=== PATIENT | female | born 1965 | race Caucasian/White ===

== ENCOUNTER 2017-09-20 16:21 | Inpatient (IN) | payer OTHER ==
[2017-09-20] MEDS: morphine 4 MG/ML VIAL IV (18:54)
[2017-09-20] MEDS: ONDANSETRON 4 MG INJ IV ×2 (18:54→23:07)
[2017-09-20] MEDS: ACETAMINOPHEN 500 MG TAB PO (18:54)
[2017-09-20] MEDS: SODIUM CHLORIDE 0.9% 1L BAG IV* (18:55)
[2017-09-20 19:03] LABS: ADD MAN DIFF? NO
[2017-09-20 19:06] LABS: WHITE BLOOD COUNT 14.4 10^3/ul (4.8-10.8)
[2017-09-20 19:06] LABS: ABNORMAL IP MESSAGE 1; BASOPHILS % 0.3 % (0.0-2.0); HEMATOCRIT 36.8 % (37.0-47.0); HEMOGLOBIN 12.5 g/dl (12.0-16.0); LYMPHOCYTES # 0.6 10^3/ul (0.8-2.9); MEAN CORPUSCULAR HEMOGLOBIN 29.1 pg (29.0-33.0); MEAN CORPUSCULAR VOLUME 85.8 fl (82.0-101.0); MEAN PLATELET VOLUME 8.7 fl (7.4-10.4); MONOCYTE # 0.4 10^3/ul (0.3-0.9); MONOCYTES % 2.4 % (0.0-11.0); NEUTROPHIL # 13.3 10^3/ul (1.6-7.5); NEUTROPHILS % 92.6 % (39.0-77.0); PLATELET COUNT 271 10^3/UL (140-415); RED BLOOD COUNT 4.29 10^6/ul (4.20-5.40); RED CELL DISTRIBUTION WIDTH 13.2 % (11.5-14.5)
[2017-09-20 19:08] LABS: POSITIVE DIFF @See below
[2017-09-20 19:27] LABS: ALANINE AMINOTRANSFERASE 37 IU/L (13-69); ALBUMIN 4.8 g/dl (3.3-4.9); ALBUMIN/GLOBULIN RATIO 1.37; ALKALINE PHOSPHATASE 95 IU/L (42-121); ANION GAP 22 (8-16); ASPARTATE AMINO TRANSFERASE 32 IU/L (15-46); BILIRUBIN,INDIRECT 0.6 mg/dl (0-1.1); BILIRUBIN,TOTAL 0.6 mg/dl (0.2-1.3); BLOOD UREA NITROGEN 18 mg/dl (7-20); CALCIUM 9.9 mg/dl (8.4-10.2); CARBON DIOXIDE 25 mmol/L (21-31); CHLORIDE 102 mmol/L (97-110); CREATININE 0.94 mg/dl (0.44-1.00); GLUCOSE 135 mg/dl (70-220); LIPASE 296 U/L (23-300); SODIUM 145 mmol/L (135-144); TOTAL PROTEIN 8.3 g/dl (6.1-8.1)
[2017-09-20 19:35] LABS: LACTIC ACID 2.5 mmol/L (0.5-2.0)
[2017-09-20 20:09] LABS: ADD UMIC YES; UR ASCORBIC ACID NEGATIVE (NEGATIVE); UR BACTERIA FEW /HPF (NONE SEEN); UR BILIRUBIN (Dip) NEGATIVE (NEGATIVE); UR BLOOD (Dip) 1+ mg/dL (NEGATIVE); UR CLARITY SLIGHTLY CLOUDY (CLEAR); UR COLOR YELLOW (YELLOW); UR GLUCOSE (Dip) NEGATIVE (NEGATIVE); UR KETONES (Dip) TRACE mg/dL (NEGATIVE); UR LEUKOCYTE ESTERASE (Dip) 1+ Leu/ul (NEGATIVE); UR MUCUS FEW /HPF (NONE SEEN); UR NITRITE (Dip) NEGATIVE (NEGATIVE); UR RBC 10 /HPF (0-5); UR SPECIFIC GRAVITY (Dip) 1.017 (1.003-1.030); UR TOTAL PROTEIN (Dip) NEGATIVE (NEGATIVE); UR UROBILINOGEN (Dip) NEGATIVE (NEGATIVE); UR WBC 94 /HPF (0-5)
[2017-09-20] MEDS: CEFTRIAXONE 1 GM/50 ML (PMX) 50 ML IVPB (20:45)
[2017-09-20] MEDS: VANCOMYCIN 1 GM (PMX) 250 ML IVPB (21:20)
[2017-09-20 21:42] LABS: LACTIC ACID 1.6 mmol/L (0.5-2.0)
[2017-09-20] MEDS ORDERED: ONDANSETRON 4 MG INJ IV (22:30)
[2017-09-20] MEDS ORDERED: ACETAMINOPHEN 325 MG TAB PO (22:30)
[2017-09-20] MEDS: HYDROmorphONE 0.5 MG/0.5 ML SYG IV (23:07)
[2017-09-21 00:11] LABS: LACTIC ACID 1.8 mmol/L (0.5-2.0)
[2017-09-21] MEDS: SOD CHLORIDE 0.9% 1,000 ML IV ×6 (00:27→23:01)
[2017-09-21] MEDS: ACETAMINOPHEN 325 MG TAB PO ×2 (00:36→06:33)
[2017-09-21] MEDS: HYDROmorphONE 0.5 MG/0.5 ML SYG IV (01:13)
[2017-09-21] MEDS: PIPER-TAZO 3.375 GM IV (PMX) 100 ML IVPB ×6 (01:15→23:01)
[2017-09-21] MEDS: morphine 2 MG INJ IV ×2 (03:22→11:52)
[2017-09-21 06:19] LABS: ABNORMAL IP MESSAGE 1; HEMATOCRIT 30.1 % (37.0-47.0); HEMOGLOBIN 10.1 g/dl (12.0-16.0); MEAN CORPUSCULAR HEMOGLOBIN 29.6 pg (29.0-33.0); MEAN CORPUSCULAR HGB CONC 33.6 g/dl (32.0-37.0); MEAN CORPUSCULAR VOLUME 88.3 fl (82.0-101.0); MEAN PLATELET VOLUME 9.1 fl (7.4-10.4); PLATELET COUNT 210 10^3/UL (140-415); RED BLOOD COUNT 3.41 10^6/ul (4.20-5.40); RED CELL DISTRIBUTION WIDTH 13.8 % (11.5-14.5)
[2017-09-21 06:19] LABS: WHITE BLOOD COUNT 12.4 10^3/ul (4.8-10.8)
[2017-09-21 06:23] LABS: ADD MAN DIFF? YES; POSITIVE DIFF @See below
[2017-09-21 06:38] LABS: ALANINE AMINOTRANSFERASE 33 IU/L (13-69); ALBUMIN 3.4 g/dl (3.3-4.9); ALBUMIN/GLOBULIN RATIO 1.21; ALKALINE PHOSPHATASE 65 IU/L (42-121); ANION GAP 15 (8-16); ASPARTATE AMINO TRANSFERASE 33 IU/L (15-46); BILIRUBIN,INDIRECT 0.8 mg/dl (0-1.1); BILIRUBIN,TOTAL 0.8 mg/dl (0.2-1.3); BLOOD UREA NITROGEN 16 mg/dl (7-20); CALCIUM 8.1 mg/dl (8.4-10.2); CARBON DIOXIDE 23 mmol/L (21-31); CHLORIDE 110 mmol/L (97-110); CREATININE 1.14 mg/dl (0.44-1.00); GLUCOSE 152 mg/dl (70-220); POTASSIUM 3.9 mmol/L (3.5-5.1); SODIUM 144 mmol/L (135-144); TOTAL PROTEIN 6.2 g/dl (6.1-8.1)
[2017-09-21 08:59] LABS: ANISOCYTOSIS 2+ (0-0); BAND NEUTROPHILS #M 3.3 10^3/ul (0.0-0.6); BAND NEUTROPHILS % (M) 27 % (0-4); HYPOCHROMASIA 1+ (0-0); LYMPHOCYTES #M 0.2 10^3/ul (0.8-2.9); LYMPHOCYTES % (M) 2 % (15-51); MICROCYTOSIS 2+ (0-0); MONOCYTE #M 0.1 10^3/ul (0.3-0.9); MONOCYTES % (M) 1 % (0-11); PLATELET ESTIMATE NORMAL; POLYCHROMASIA 1+ (0-0); SEG NEUT #M 9.1 10^3/ul (1.6-7.5); SEGMENTED NEUTROPHILS (M) % 70 % (39-77); SMUDGE%M 2 % (0-0)
[2017-09-21] MEDS: ACETAMINOPHEN 1000MG/100ML IV 100 ML IVPB ×3 (13:15→21:23)
[2017-09-21] MEDS ORDERED: IOHEXOL 300MG/ML 30 ML BTL (17:30)
[2017-09-21] MEDS ORDERED: FENTAnyl 50 MCG/ML VIAL ×2 (18:02→18:13)
[2017-09-21] MEDS ORDERED: MIDAZOLAM 1 MG/ML 2 ML INJ (18:02)
[2017-09-21] MEDS ORDERED: MEPERIDINE 100 MG INJ (18:39)
[2017-09-21] MEDS ORDERED: ONDANSETRON 4 MG INJ (18:40)
[2017-09-21] MEDS ORDERED: LIDOCAINE 100 MG SYRINGE (18:40)
[2017-09-21] MEDS ORDERED: PROPOFOL 20 ML (18:40)
[2017-09-21] MEDS: SODIUM CHLORIDE 0.9% 1L IRRIG IRR (18:59)
[2017-09-21] MEDS ORDERED: MEPERIDINE 25 MG INJ IV (19:00)
[2017-09-21] MEDS ORDERED: FENTAnyl 50 MCG/ML VIAL IV (19:00)
[2017-09-21] MEDS ORDERED: ONDANSETRON 4 MG INJ IV (19:00)
[2017-09-21] MEDS ORDERED: DIPHENHYDRAMINE 50 MG INJ IV (19:00)
[2017-09-21] MEDS ORDERED: HYDROmorphONE (0.2 MG/ML) 10ML SYG IV ×2 (19:00)
[2017-09-21 20:19] LABS: AADO2 Arterial 632.1 mmHg (7.0-24.0); Allen Test ACCEPTAB; Arterial Base Excess -6.6 mmol/L (-3.0-3); Arterial Blood Gas Oxygen Sat 86.3 mmHG (95.0-98.0); Arterial COHb 0.3 % (0.0-3.0); Arterial Fraction of Oxyhgb 85.9 % (93.0-99.0); Arterial HCO3 17.5 mmol/L (22.0-26.0); Arterial MetHb 0.2 % (0.0-1.5); Arterial Total Hemglobin 11.6 g/dl (12.0-18.0); Arterial pCO2 30.5 mmhg (35-45); MODE NON-REBREATHING MASK; Site Right Radial
[2017-09-21] MEDS ORDERED: TAMSULOSIN (SR) 0.4 MG CAP PO (21:00)
[2017-09-22] MEDS: PIPER-TAZO 3.375 GM IV (PMX) 100 ML IVPB ×4 (05:05→23:47)
[2017-09-22] MEDS: ACETAMINOPHEN 325 MG TAB PO ×3 (05:05→19:19)
[2017-09-22 05:26] LABS: WHITE BLOOD COUNT 10.8 10^3/ul (4.8-10.8)
[2017-09-22 05:26] LABS: HEMATOCRIT 28.6 % (37.0-47.0); HEMOGLOBIN 9.5 g/dl (12.0-16.0); MEAN CORPUSCULAR HEMOGLOBIN 29.6 pg (29.0-33.0); MEAN CORPUSCULAR HGB CONC 33.2 g/dl (32.0-37.0); MEAN CORPUSCULAR VOLUME 89.1 fl (82.0-101.0); MEAN PLATELET VOLUME 9.2 fl (7.4-10.4); PLATELET COUNT 159 10^3/UL (140-415); RED BLOOD COUNT 3.21 10^6/ul (4.20-5.40); RED CELL DISTRIBUTION WIDTH 14.3 % (11.5-14.5)
[2017-09-22 05:28] LABS: IRON 20 ug/dl (35-150)
[2017-09-22 05:38] LABS: % IRON SATURATION 7 % SAT (22-52); TOTAL IRON BINDING CAPACITY 268 ug/dl (241-421)
[2017-09-22 05:55] LABS: ANION GAP 17 (8-16); BLOOD UREA NITROGEN 14 mg/dl (7-20); CALCIUM 8.3 mg/dl (8.4-10.2); CARBON DIOXIDE 22 mmol/L (21-31); CHLORIDE 109 mmol/L (97-110); GLUCOSE 96 mg/dl (70-220); MAGNESIUM 1.8 mg/dl (1.7-2.5); PHOSPHORUS 3.7 mg/dl (2.5-4.9); POTASSIUM 3.8 mmol/L (3.5-5.1); SODIUM 144 mmol/L (135-144)
[2017-09-22 06:06] LABS: POSITIVE DIFF @See below
[2017-09-22 06:07] LABS: ADD MAN DIFF? YES
[2017-09-22 06:24] LABS: FERRITIN 60.1 ng/ml (6.2-137.0)
[2017-09-22] MEDS: SOD CHLORIDE 0.9% 1,000 ML IV (08:13)
[2017-09-22 08:59] LABS: ANISOCYTOSIS 1+ (0-0); BASOPHIL #M 0.1 10^3/ul (0.0-0.0); BASOPHILS % (M) 1 % (0-2); MICROCYTOSIS 1+ (0-0); PLATELET ESTIMATE NORMAL; POLYCHROMASIA 2+ (0-0); SMUDGE%M 5 % (0-0)
[2017-09-22] MEDS ORDERED: VANCOMYCIN IV PER PHARMACY XX (10:00)
[2017-09-22] MEDS ORDERED: ALBUTEROL/IPRATROPIUM (NEB) 3 ML AMP HHN (10:00)
[2017-09-22 11:27] LABS: B-TYPE NATRIURETIC PEPTIDE 1150 PG/ML (0-125)
[2017-09-22] MEDS: VANCOMYCIN 1.5 GM in SOD CHLORIDE 0.9% 250 ML IVPB (12:00)
[2017-09-22 12:41] LABS: BAND NEUTROPHILS #M 1.5 10^3/ul (0.0-0.6); BAND NEUTROPHILS % (M) 14 % (0-4); EOSINOPHILS % (M) 1 % (0-7); LYMPHOCYTES #M 0.4 10^3/ul (0.8-2.9); LYMPHOCYTES % (M) 4 % (15-51); MONOCYTE #M 0.3 10^3/ul (0.3-0.9); MONOCYTES % (M) 3 % (0-11); POIKILOCYTOSIS 2+ (0-0); REACTIVE LYMPHOCYTES #M 0.1 10^3/ul (0.0-0.0); REACTIVE LYMPHOCYTES% (M) 1 % (0-0); SEG NEUT #M 8.6 10^3/ul (1.6-7.5); SEGMENTED NEUTROPHILS (M) % 78 % (39-77)
[2017-09-22] MEDS ORDERED: FUROSEMIDE 20 MG INJ IV ×2 (13:30→18:00)
[2017-09-22 14:26] LABS: TROPONIN-I 0.036 ng/ml (0.00-0.12)
[2017-09-22] MEDS: ALBUTEROL/IPRATROPIUM (NEB) 3 ML AMP HHN ×2 (14:49→20:11)
[2017-09-22] MEDS: HEPARIN 5,000 UNIT/0.5 ML VIAL SC ×2 (14:51→22:16)
[2017-09-23] MEDS ORDERED: VANCOMYCIN 1.25 GM in SOD CHLORIDE 0.9% 250 ML IVPB
[2017-09-23] MEDS: ACETAMINOPHEN 325 MG TAB PO ×2 (02:22→11:56)
[2017-09-23 05:10] LABS: ADD MAN DIFF? NO
[2017-09-23 05:16] LABS: BASOPHILS % 0.3 % (0.0-2.0); EOSINOPHILS # 0.1 10^3/ul (0.0-0.5); EOSINOPHILS % 0.6 % (0.0-7.0); HEMATOCRIT 26.6 % (37.0-47.0); HEMOGLOBIN 9.2 g/dl (12.0-16.0); LYMPHOCYTES # 1.1 10^3/ul (0.8-2.9); LYMPHOCYTES % 10.8 % (15.0-51.0); MEAN CORPUSCULAR HEMOGLOBIN 29.6 pg (29.0-33.0); MEAN CORPUSCULAR HGB CONC 34.6 g/dl (32.0-37.0); MEAN CORPUSCULAR VOLUME 85.5 fl (82.0-101.0); MEAN PLATELET VOLUME 9.2 fl (7.4-10.4); MONOCYTE # 0.7 10^3/ul (0.3-0.9); MONOCYTES % 6.9 % (0.0-11.0); NEUTROPHIL # 8.1 10^3/ul (1.6-7.5); NEUTROPHILS % 80.8 % (39.0-77.0); PLATELET COUNT 175 10^3/UL (140-415); RED BLOOD COUNT 3.11 10^6/ul (4.20-5.40); RED CELL DISTRIBUTION WIDTH 13.8 % (11.5-14.5)
[2017-09-23 05:39] LABS: LACTIC ACID 0.8 mmol/L (0.5-2.0)
[2017-09-23] MEDS: PIPER-TAZO 3.375 GM IV (PMX) 100 ML IVPB (05:50)
[2017-09-23 05:53] LABS: ANION GAP 16 (8-16); BLOOD UREA NITROGEN 10 mg/dl (7-20); CALCIUM 8.4 mg/dl (8.4-10.2); CARBON DIOXIDE 25 mmol/L (21-31); CHLORIDE 108 mmol/L (97-110); CREATININE 0.75 mg/dl (0.44-1.00); GLUCOSE 99 mg/dl (70-220); POTASSIUM 3.5 mmol/L (3.5-5.1); SODIUM 145 mmol/L (135-144)
[2017-09-23] MEDS: HEPARIN 5,000 UNIT/0.5 ML VIAL SC (05:55)
[2017-09-23 05:56] LABS: TROPONIN-I 0.016 ng/ml (0.00-0.12)
[2017-09-23] MEDS: ALBUTEROL/IPRATROPIUM (NEB) 3 ML AMP HHN ×3 (12:07→20:25)
[2017-09-23] MEDS: LEVOFLOXACIN 750MG/D5W (PMX) 150 ML IVPB (13:32)
[2017-09-23] MEDS: IBUPROFEN 400 MG TAB NGT (14:48)
[2017-09-24 06:05] LABS: ADD MAN DIFF? NO
[2017-09-24 06:21] LABS: WHITE BLOOD COUNT 7.4 10^3/ul (4.8-10.8)
[2017-09-24 06:21] LABS: BASOPHILS % 0.4 % (0.0-2.0); EOSINOPHILS # 0.1 10^3/ul (0.0-0.5); EOSINOPHILS % 1.1 % (0.0-7.0); HEMATOCRIT 26.7 % (37.0-47.0); HEMOGLOBIN 9.4 g/dl (12.0-16.0); LYMPHOCYTES # 1.1 10^3/ul (0.8-2.9); LYMPHOCYTES % 14.3 % (15.0-51.0); MEAN CORPUSCULAR HEMOGLOBIN 29.2 pg (29.0-33.0); MEAN CORPUSCULAR HGB CONC 35.2 g/dl (32.0-37.0); MEAN CORPUSCULAR VOLUME 82.9 fl (82.0-101.0); MEAN PLATELET VOLUME 9.2 fl (7.4-10.4); MONOCYTE # 0.6 10^3/ul (0.3-0.9); MONOCYTES % 8.6 % (0.0-11.0); NEUTROPHIL # 5.5 10^3/ul (1.6-7.5); NEUTROPHILS % 74.9 % (39.0-77.0); PLATELET COUNT 227 10^3/UL (140-415); RED BLOOD COUNT 3.22 10^6/ul (4.20-5.40); RED CELL DISTRIBUTION WIDTH 13.6 % (11.5-14.5)
[2017-09-24 06:48] LABS: ANION GAP 14 (8-16); BLOOD UREA NITROGEN 10 mg/dl (7-20); CALCIUM 8.7 mg/dl (8.4-10.2); CARBON DIOXIDE 26 mmol/L (21-31); CHLORIDE 108 mmol/L (97-110); CREATININE 0.65 mg/dl (0.44-1.00); GLUCOSE 115 mg/dl (70-220); MAGNESIUM 1.9 mg/dl (1.7-2.5); PHOSPHORUS 1.3 mg/dl (2.5-4.9); POTASSIUM 3.4 mmol/L (3.5-5.1); SODIUM 145 mmol/L (135-144)
[2017-09-24] MEDS: ALBUTEROL/IPRATROPIUM (NEB) 3 ML AMP HHN ×2 (08:46→13:56)
[2017-09-24] MEDS: ENOXAPARIN 40 MG/0.4 ML SYG SC (09:06)
[2017-09-24] MEDS: POTASSIUM PHOSPHATE 20 MEQ in SOD CHLORIDE 0.9% 250 ML IVPB (11:34)
[2017-09-24] MEDS: LEVOFLOXACIN 750MG/D5W (PMX) 150 ML IVPB (13:28)
[2017-09-24] MEDS: ACETAMINOPHEN 325 MG TAB PO (14:56)
== END 2017-09-24 19:30 | disposition short-term general hospital (02) | DRG 871 ==
LOC: PP2 22:28 → FTE 16:21 → TEL 09-21 14:05 → ICU 09-21 21:02
PROC: 0T768DZ Dilation of Right Ureter with Intraluminal Device, Via Natural or Artificial Opening Endoscopic (ICD-10-PCS; principal; 2017-09-21 17:30)
PROC: 4A033R1 Measurement of Arterial Saturation, Peripheral, Percutaneous Approach (ICD-10-PCS; 2017-09-21 17:59)
DX: A41.50 Gram-negative sepsis, unspecified (principal); J96.01 Acute respiratory failure with hypoxia; J18.9 Pneumonia, unspecified organism; N13.6 Pyonephrosis; D64.9 Anemia, unspecified; R65.20 Severe sepsis without septic shock
CPT/HCPCS: 36415; 36600; 71045; 74018; 74176; 74430; 80048; 80053; 81001; 82728; 82803; 83540; 83605; 83690; 83735; 83880; 84100; 84443; 84484; 85025; 87040; 87081; 87086; 87400; 93306; 94640; 96365; 96366; 96367; 96375; 96376; 99285-25

== ENCOUNTER 2017-11-09 19:10 | Inpatient (IN) | payer OTHER ==
[2017-11-09 20:13] LABS: ADD MAN DIFF? NO
[2017-11-09 20:16] LABS: BASOPHIL # 0.1 10^3/ul (0.0-0.1); BASOPHILS % 0.5 % (0.0-2.0); EOSINOPHILS # 0.2 10^3/ul (0.0-0.5); EOSINOPHILS % 1.9 % (0.0-7.0); HEMATOCRIT 31.5 % (37.0-47.0); HEMOGLOBIN 10.5 g/dl (12.0-16.0); LYMPHOCYTES # 1.9 10^3/ul (0.8-2.9); LYMPHOCYTES % 18.5 % (15.0-51.0); MEAN CORPUSCULAR HEMOGLOBIN 29.4 pg (29.0-33.0); MEAN CORPUSCULAR HGB CONC 33.3 g/dl (32.0-37.0); MEAN CORPUSCULAR VOLUME 88.2 fl (82.0-101.0); MEAN PLATELET VOLUME 8.9 fl (7.4-10.4); MONOCYTE # 0.6 10^3/ul (0.3-0.9); MONOCYTES % 6.3 % (0.0-11.0); NEUTROPHIL # 7.3 10^3/ul (1.6-7.5); NEUTROPHILS % 72.6 % (39.0-77.0); PLATELET COUNT 327 10^3/UL (140-415); RED BLOOD COUNT 3.57 10^6/ul (4.20-5.40); RED CELL DISTRIBUTION WIDTH 13.1 % (11.5-14.5)
[2017-11-09 20:16] LABS: WHITE BLOOD COUNT 10.1 10^3/ul (4.8-10.8)
[2017-11-09 20:22] LABS: ADD UMIC YES; UR ASCORBIC ACID NEGATIVE (NEGATIVE); UR BILIRUBIN (Dip) NEGATIVE (NEGATIVE); UR BLOOD (Dip) 3+ mg/dL (NEGATIVE); UR CLARITY SLIGHTLY CLOUDY (CLEAR); UR COLOR STRAW (YELLOW); UR GLUCOSE (Dip) NEGATIVE (NEGATIVE); UR KETONES (Dip) NEGATIVE (NEGATIVE); UR LEUKOCYTE ESTERASE (Dip) TRACE Leu/ul (NEGATIVE); UR MUCUS FEW /HPF (NONE SEEN); UR NITRITE (Dip) NEGATIVE (NEGATIVE); UR RBC 47 /HPF (0-5); UR SPECIFIC GRAVITY (Dip) 1.013 (1.003-1.030); UR TOTAL PROTEIN (Dip) 1+ mg/dl (NEGATIVE); UR UROBILINOGEN (Dip) NEGATIVE (NEGATIVE); UR WBC 8 /HPF (0-5)
[2017-11-09] MEDS: CEFEPIME 2GM/50 ML (PMX) 50 ML IVPB (20:22)
[2017-11-09] MEDS: SODIUM CHLORIDE 0.9% 1L BAG IV* (20:23)
[2017-11-09] MEDS: morphine 4 MG/ML VIAL IV (20:23)
[2017-11-09] MEDS: ONDANSETRON 4 MG INJ IV (20:23)
[2017-11-09 20:31] LABS: INR 0.94; PARTIAL THROMBOPLASTIN TIME 28.9 Sec (25.0-35.0); PROTIME 12.7 Sec (11.9-14.9)
[2017-11-09 20:32] LABS: LACTIC ACID 1.2 mmol/L (0.5-2.0)
[2017-11-09 20:33] LABS: ALANINE AMINOTRANSFERASE 29 IU/L (13-69); ALBUMIN 4.1 g/dl (3.3-4.9); ALBUMIN/GLOBULIN RATIO 1.13; ALKALINE PHOSPHATASE 97 IU/L (42-121); ANION GAP 16 (8-16); ASPARTATE AMINO TRANSFERASE 19 IU/L (15-46); BILIRUBIN,INDIRECT 0.3 mg/dl (0-1.1); BILIRUBIN,TOTAL 0.3 mg/dl (0.2-1.3); BLOOD UREA NITROGEN 20 mg/dl (7-20); CALCIUM 9.5 mg/dl (8.4-10.2); CARBON DIOXIDE 25 mmol/L (21-31); CHLORIDE 103 mmol/L (97-110); CREATININE 0.72 mg/dl (0.44-1.00); GLUCOSE 110 mg/dl (70-220); POTASSIUM 3.1 mmol/L (3.5-5.1); SODIUM 141 mmol/L (135-144); TOTAL PROTEIN 7.7 g/dl (6.1-8.1)
[2017-11-09 20:54] LABS: TROPONIN-I < 0.012 ng/ml (0.00-0.12)
[2017-11-09 22:11] LABS: LACTIC ACID 0.9 mmol/L (0.5-2.0)
[2017-11-09] MEDS: POTASSIUM CHLORIDE (SR) 20 MEQ TAB PO (22:54)
[2017-11-10 00:18] LABS: LACTIC ACID 1.7 mmol/L (0.5-2.0)
[2017-11-10] MEDS ORDERED: PIPER-TAZO 3.375 GM IV (PMX) 100 ML IVPB (02:00)
[2017-11-10] MEDS ORDERED: NACL 0.9% 3 ML SYG IV (03:00)
[2017-11-10] MEDS: CEFEPIME 1GM/50 ML (PMX) 50 ML IVPB ×2 (09:25→21:25)
[2017-11-10] MEDS: ACETAMINOPHEN 325 MG TAB PO (22:32)
[2017-11-11 06:15] LABS: ADD MAN DIFF? NO
[2017-11-11 06:18] LABS: BASOPHIL # 0.1 10^3/ul (0.0-0.1); BASOPHILS % 0.8 % (0.0-2.0); EOSINOPHILS # 0.3 10^3/ul (0.0-0.5); EOSINOPHILS % 4.6 % (0.0-7.0); HEMATOCRIT 35.3 % (37.0-47.0); HEMOGLOBIN 11.5 g/dl (12.0-16.0); LYMPHOCYTES % 33.2 % (15.0-51.0); MEAN CORPUSCULAR HEMOGLOBIN 29.1 pg (29.0-33.0); MEAN CORPUSCULAR HGB CONC 32.6 g/dl (32.0-37.0); MEAN CORPUSCULAR VOLUME 89.4 fl (82.0-101.0); MEAN PLATELET VOLUME 8.7 fl (7.4-10.4); MONOCYTE # 0.5 10^3/ul (0.3-0.9); MONOCYTES % 8.4 % (0.0-11.0); NEUTROPHIL # 3.2 10^3/ul (1.6-7.5); NEUTROPHILS % 52.7 % (39.0-77.0); PLATELET COUNT 296 10^3/UL (140-415); RED BLOOD COUNT 3.95 10^6/ul (4.20-5.40); RED CELL DISTRIBUTION WIDTH 13.1 % (11.5-14.5)
[2017-11-11 06:18] LABS: WHITE BLOOD COUNT 6.1 10^3/ul (4.8-10.8)
[2017-11-11 06:45] LABS: ALANINE AMINOTRANSFERASE 32 IU/L (13-69); ALBUMIN 3.8 g/dl (3.3-4.9); ALBUMIN/GLOBULIN RATIO 1.08; ALKALINE PHOSPHATASE 90 IU/L (42-121); ANION GAP 12 (8-16); ASPARTATE AMINO TRANSFERASE 24 IU/L (15-46); BILIRUBIN,INDIRECT 0.6 mg/dl (0-1.1); BILIRUBIN,TOTAL 0.6 mg/dl (0.2-1.3); BLOOD UREA NITROGEN 16 mg/dl (7-20); CALCIUM 9.8 mg/dl (8.4-10.2); CARBON DIOXIDE 31 mmol/L (21-31); CHLORIDE 107 mmol/L (97-110); CREATININE 0.65 mg/dl (0.44-1.00); GLUCOSE 97 mg/dl (70-220); POTASSIUM 3.9 mmol/L (3.5-5.1); SODIUM 146 mmol/L (135-144); TOTAL PROTEIN 7.3 g/dl (6.1-8.1)
[2017-11-11 06:46] LABS: PHOSPHORUS 4.5 mg/dl (2.5-4.9)
[2017-11-11 06:46] LABS: CHOL/HDL RATIO 4.1 RATIO; CHOLESTEROL 196 mg/dl (100-200); HDL CHOLESTEROL 47 mg/dl (37-92); LDL CHOLESTEROL,CALCULATED 129 mg/dl; TRIGLYCERIDES 98 mg/dl (0-149)
[2017-11-11 06:51] LABS: FREE T4 (FREE THYROXINE) 1.26 ng/dl (0.64-1.79)
[2017-11-11 07:05] LABS: THYROID STIMULATING HORMONE 0.908 MIU/L (0.465-4.680)
[2017-11-11 07:37] LABS: HEMOGLOBIN A1C 5.2 % (0-5.9)
[2017-11-11] MEDS: CEFEPIME 1GM/50 ML (PMX) 50 ML IVPB ×2 (09:17→20:47)
[2017-11-11] MEDS: ACETAMINOPHEN 325 MG TAB PO (14:29)
[2017-11-12] MEDS ORDERED: CEFAZOLIN 1 GM INJ (07:00)
[2017-11-12 07:41] LABS: ADD MAN DIFF? NO
[2017-11-12 07:49] LABS: WHITE BLOOD COUNT 6.8 10^3/ul (4.8-10.8)
[2017-11-12 07:49] LABS: BASOPHIL # 0.1 10^3/ul (0.0-0.1); BASOPHILS % 0.9 % (0.0-2.0); EOSINOPHILS # 0.2 10^3/ul (0.0-0.5); EOSINOPHILS % 3.2 % (0.0-7.0); HEMATOCRIT 35.2 % (37.0-47.0); HEMOGLOBIN 11.7 g/dl (12.0-16.0); LYMPHOCYTES # 1.9 10^3/ul (0.8-2.9); MEAN CORPUSCULAR HEMOGLOBIN 29.6 pg (29.0-33.0); MEAN CORPUSCULAR HGB CONC 33.2 g/dl (32.0-37.0); MEAN CORPUSCULAR VOLUME 89.1 fl (82.0-101.0); MEAN PLATELET VOLUME 8.8 fl (7.4-10.4); MONOCYTE # 0.5 10^3/ul (0.3-0.9); MONOCYTES % 7.8 % (0.0-11.0); NEUTROPHIL # 4.1 10^3/ul (1.6-7.5); PLATELET COUNT 322 10^3/UL (140-415); RED BLOOD COUNT 3.95 10^6/ul (4.20-5.40); RED CELL DISTRIBUTION WIDTH 12.8 % (11.5-14.5)
[2017-11-12 08:15] LABS: PHOSPHORUS 4.4 mg/dl (2.5-4.9)
[2017-11-12 08:28] LABS: ANION GAP 15 (8-16); BLOOD UREA NITROGEN 20 mg/dl (7-20); CALCIUM 9.9 mg/dl (8.4-10.2); CARBON DIOXIDE 30 mmol/L (21-31); CHLORIDE 105 mmol/L (97-110); GLUCOSE 104 mg/dl (70-220); SODIUM 146 mmol/L (135-144)
[2017-11-12] MEDS: CEFEPIME 1GM/50 ML (PMX) 50 ML IVPB ×2 (09:02→21:00)
[2017-11-12] MEDS ORDERED: MIDAZOLAM 1 MG/ML 2 ML INJ (21:31)
[2017-11-12] MEDS ORDERED: FENTAnyl 50 MCG/ML VIAL ×2 (21:31→21:51)
[2017-11-12] MEDS ORDERED: PROPOFOL 20 ML (21:31)
[2017-11-12] MEDS ORDERED: METOCLOPRAMIDE 10 MG INJ (21:33)
[2017-11-12] MEDS ORDERED: ONDANSETRON 4 MG INJ (21:33)
[2017-11-12] MEDS ORDERED: HYDROmorphONE (0.2 MG/ML) 10ML SYG IV ×2 (22:00)
[2017-11-12] MEDS ORDERED: hydrALAzine 20 MG INJ IV (22:00)
[2017-11-12] MEDS ORDERED: LABETALOL HCL 20MG INJ IV (22:00)
[2017-11-12] MEDS ORDERED: DIPHENHYDRAMINE 50 MG INJ IV (22:00)
[2017-11-12] MEDS: ONDANSETRON 4 MG INJ IV (23:23)
[2017-11-12] MEDS: MEPERIDINE 25 MG INJ IV (23:36)
[2017-11-13] MEDS: HYDROCODONE/APAP (5/325) TAB PO ×4 (01:03→23:05)
[2017-11-13] MEDS: morphine 4 MG/ML VIAL IV ×2 (05:55→06:05)
[2017-11-13] MEDS: CEFEPIME 1GM/50 ML (PMX) 50 ML IVPB ×2 (09:09→20:26)
[2017-11-13 09:53] LABS: TROPONIN-I < 0.012 ng/ml (0.00-0.12)
[2017-11-13 10:09] LABS: D-DIMER 583.39 ng/ml (<460)
[2017-11-13] MEDS ORDERED: OXYCODONE/ACETAMINOPHEN (5/325) TAB PO (13:30)
[2017-11-13] MEDS: OXYCODONE/ACETAMINOPHEN (5/325) TAB PO (13:37)
[2017-11-13] MEDS: POLYETHYLENE GLYCOL 17 GM PACKET PO (17:20)
[2017-11-13] MEDS ORDERED: morphine 2 MG INJ (23:14)
[2017-11-13] MEDS: morphine 2 MG INJ IV (23:19)
[2017-11-13] MEDS: ONDANSETRON 4 MG INJ IV (23:20)
[2017-11-14] MEDS: CEFEPIME 1GM/50 ML (PMX) 50 ML IVPB (08:31)
[2017-11-14] MEDS: ACETAMINOPHEN 325 MG TAB PO (12:01)
[2017-11-14] MEDS: morphine 2 MG INJ IV (15:45)
== END 2017-11-14 18:33 | disposition home or self-care (01) | DRG 854 ==
LOC: E/R 19:10 → MS4 22:24
PROC: 0TC68ZZ Extirpation of Matter from Right Ureter, Via Natural or Artificial Opening Endoscopic (ICD-10-PCS; principal; 2017-11-12 19:00)
PROC: 0T768DZ Dilation of Right Ureter with Intraluminal Device, Via Natural or Artificial Opening Endoscopic (ICD-10-PCS; 2017-11-12 19:00)
PROC: 0TP98DZ Removal of Intraluminal Device from Ureter, Via Natural or Artificial Opening Endoscopic (ICD-10-PCS; 2017-11-12 19:00)
DX: A41.9 Sepsis, unspecified organism (principal); N13.6 Pyonephrosis; E87.6 Hypokalemia; D64.9 Anemia, unspecified
CPT/HCPCS: 36415; 71045; 74018; 74176; 74430; 76775; 80048; 80053; 80061; 81001; 83036; 83605; 83735; 84100; 84439; 84443; 84484; 84703; 85025; 85378; 85610; 85730; 87040; 87086; 88300; 93005; 96374; 96375; 99291-25

== ENCOUNTER 2018-12-28 19:12 | Emergency (ER) | payer OTHER | END 2018-12-28 22:58 | disposition home or self-care (01) | LOC: FTE 19:12 | DX: S20.211A Contusion of right front wall of thorax, initial encounter (principal); X58.XXXA Exposure to other specified factors, initial encounter; Y92.9 Unspecified place or not applicable | CPT/HCPCS: 71045; 71100; 99283-25 ==